=== PATIENT | male | born 1995 | race Caucasian/White ===

== ENCOUNTER 2017-01-01 13:16 | Emergency (ER) | payer OTHER ==
[~2017-01-01] VITALS: Ht 180.3 cm; Wt 106.8 kg
[2017-01-01 13:17] VITALS: BP 136/77
== END 2017-01-01 14:58 | disposition left against medical advice (07) ==
LOC: EMS 13:18
DX: J02.9 Acute pharyngitis, unspecified (principal); Z53.21 Procedure and treatment not carried out due to patient leaving prior to being seen by health care provider

== ENCOUNTER 2017-02-23 23:16 | Emergency (ER) | payer OTHER | END 2017-02-24 00:21 | disposition left against medical advice (07) | LOC: EMS 23:17 | DX: R10.9 Unspecified abdominal pain (principal); R11.0 Nausea; R42 Dizziness and giddiness; Z53.21 Procedure and treatment not carried out due to patient leaving prior to being seen by health care provider ==

== ENCOUNTER 2019-01-07 00:52 | Emergency (ER) | payer OTHER ==
[~2019-01-07] VITALS: Ht 180.3 cm; Wt 90.0 kg
[2019-01-07] MEDS ORDERED: ACETAMINOPHEN 500 MG TABLET PO ONE (01:30)
[2019-01-07] MEDS ORDERED: TraMADol HCL 50 MG TABLET PO ONE (03:15)
[2019-01-07] MEDS ORDERED: LIDOCAINE/PF 1% 2 ML VIAL IM ONE (03:30)
[2019-01-07] MEDS ORDERED: CefTRIAXone SODIUM 1 GM/VIAL IM ONE (03:30)
[2019-01-07] MEDS ORDERED: LIDOCAINE/PF 1% 30 ML VIAL INJ ONE (03:45)
[2019-01-07] MEDS ORDERED: LIDOCAINE 2% 5 ML JELLY TP ONE (03:45)
[2019-01-07] MEDS ORDERED: LIDOCAINE 1% 10 ML VIAL INJ ONE (04:00)
[2019-01-07] MEDS ORDERED: LIDOCAINE/PF 1% 5 ML VIAL ONE (04:09)
[2019-01-07 04:55] VITALS: BP 122/83
== END 2019-01-07 05:12 | disposition home or self-care (01) ==
LOC: EMS 00:54
DX: S02.2XXB Fracture of nasal bones, initial encounter for open fracture (principal); S01.21XA Laceration without foreign body of nose, initial encounter; Y04.2XXA Assault by strike against or bumped into by another person, initial encounter; Y93.89 Activity, other specified; Y92.89 Other specified places as the place of occurrence of the external cause; Y99.8 Other external cause status
CPT/HCPCS: 12013; 70450; 70486; 72125; 96372; 99284; J0696; J2001; J3490 ×2

== ENCOUNTER 2019-01-09 22:48 | Emergency (ER) | payer OTHER ==
[~2019-01-09] VITALS: Ht 180.3 cm; Wt 88.6 kg
[2019-01-10] MEDS ORDERED: OXYMETAZOLINE HCL 0.05% 15 ML NASAL SPRAY NASAL ONE ×2 (01:45)
[2019-01-10 01:47] VITALS: BP 132/71
== END 2019-01-10 02:14 | disposition home or self-care (01) ==
LOC: EMS 22:48
DX: S02.2XXD Fracture of nasal bones, subsequent encounter for fracture with routine healing (principal); Z48.00 Encounter for change or removal of nonsurgical wound dressing; Y04.0XXD Assault by unarmed brawl or fight, subsequent encounter